=== PATIENT | male | born 1950 | race Caucasian/White ===

== ENCOUNTER 2018-07-13 10:47 | Inpatient (IN) | payer OTHER ==
[2018-07-13] MEDS ORDERED: MIDAZOLAM 2 MG/2 ML VIAL ONE (11:03)
[2018-07-13] MEDS ORDERED: LIDOCAINE 1% 300 MG/30 ML SDV ONE (11:03)
[2018-07-13] MEDS ORDERED: IOPAMIDOL (ISOVUE-370) 150 ML BTL IV ONE (11:03)
[2018-07-13] MEDS ORDERED: fentaNYL 100 MCG/2 ML INJ ONE (11:03)
[2018-07-13] MEDS ORDERED: ASPIRIN 81 MG CHEWABLE TAB ONE (11:03)
[2018-07-13] MEDS ORDERED: ONDANSETRON 4 MG/2 ML VIAL IVP ONE (11:06)
[2018-07-13] MEDS ORDERED: ASPIRIN 81 MG CHEWABLE TAB PO ONE (11:06)
[2018-07-13] MEDS ORDERED: ATROPINE SULFATE 1 MG/10 ML SYR ONE (11:07)
[2018-07-13] MEDS ORDERED: CLOPIDOGREL BISULFATE 75 MG TAB ONE (11:07)
[2018-07-13] MEDS ORDERED: BIVALIRUDIN 250 MG/5 ML VIAL IV ONE (11:07)
[2018-07-13] MEDS ORDERED: NITROGLYCERIN 1,500 MCG/15 ML VIAL MISC ONE (11:07)
[2018-07-13] MEDS ORDERED: EPINEPHrine 1 MG/10 ML SYR IVP ONE (11:07)
[2018-07-13] MEDS ORDERED: CLOPIDOGREL BISULFATE 75 MG TAB PO ONE (11:11)
--- NOTE | 2018-07-13 11:11 | EDPHY ---
H & P Stated Complaint: cp/l arm radiation Time Seen by Provider: 07/13/18 10:55 HPI/ROS: CHIEF COMPLAINT: Chest pain HISTORY OF PRESENT ILLNESS: 68-year-old male with diabetes and hypertension presents with chest pain. He was walking out of a store 20 min prior to arrival when he developed fairly sudden onset of severe anterior chest pain, 10/ 10, associated with diaphoresis. Pain persisted, so drove himself to the ED. Continues to have 8/10 chest pain. No radiation of pain and no allev/aggrev factors. No known history of coronary artery disease. REVIEW OF SYSTEMS: complete 10 point ROS reviewed and is negative except for the noted elements in the HPI Source: Patient - Personal History Current Tetanus Diphtheria and Acellular Pertussis (TDAP): Yes - Medical/Surgical History Hx Asthma: No Hx Chronic Respiratory Disease: No Hx Diabetes: Yes Hx Cardiac Disease: No Hx Renal Disease: No Hx Cirrhosis: No Hx Alcoholism: No Hx HIV/AIDS: No Hx Splenectomy or Spleen Trauma: No Other PMH: diab/htn - Social History Smoking Status: Never smoked Alcohol Use: Sober Drug Use: None Additional Social History: - Physical Exam Exam: General Appearance: Alert, pleasant Eyes: Pupils equal and round, no conjunctival pallor or injection ENT, Mouth: Mucous membranes moist Neck: Normal inspection Respiratory: Lungs are clear to auscultation anteriorly Cardiovascular: Regular rate and rhythm Gastrointestinal: Abdomen is soft and nontender Neurological: A&O, nonfocal exam Skin: Warm and dry, no rash Extremities: Nontender, pedal edema Psychiatric: Mood and affect normal Constitutional: Initial Vital Signs Temperature (C) 36.5 C 07/13/18 10:49 Heart Rate 77 07/13/18 10:49 Respiratory Rate 19 07/13/18 10:49 Blood Pressure 110/91 H 07/13/18 10:49 O2 Sat (%) 92 07/13/18 10:49 O2 Delivery Mode Room Air Allergies/Adverse Reactions: metformin Allergy (Verified 07/13/18 13:34) Diarrhea Home Medications: Medication Instructions Recorded Acetaminophen [Tylenol 325mg (*)] 325 mg PO DAILY PRN 07/13/18 Exenatide [Byetta] 10 mcg SQ BID 07/13/18 Gabapentin [Neurontin 300 MG (*)] 300 mg PO DAILY 07/13/18 Gabapentin [Neurontin 300 MG (*)] 600 mg PO HS 07/13/18 Insulin Aspart [novoLOG] 2 - 4 unit SC TIDMEAL 07/13/18 Insulin Detemir [Levemir] 41 unit SQ HS 07/13/18 Lisinopril [Zestril 40 mg (*)] 40 mg PO DAILY 07/13/18 Omeprazole 20 mg PO BIDAC 07/13/18 Aspirin EC [Aspirin EC 325 mg (*)] 325 mg PO DAILY #0 tab 07/14/18 Clopidogrel Bisulfate [Plavix (*)] 75 mg PO DAILY #30 tab 07/14/18 Nitroglycerin [Nitrostat 0.4 mg 0.4 mg SL PRN PRN #1 btl 07/14/18 (*)] Medical Decision Making - Diagnostics EKG Interpretation: EKG interpreted by me reveals ST segment elevation in inferior leads, consistent with acute inferior myocardial infarction. Interpretation: Abnormal EKG Imaging Results: Chest x-ray: Unremarkable Imaging: I viewed and interpreted images myself ED Course/Re-evaluation: Cardiac alert was called on patient arrival. EKG c/w acute inferior [place]. Aspirin 324 mg orally given. Plavix 600 mg orally. Morphine 4 mg IV for chest pain, some alleviation of cp. Stat portable chest x-ray is unremarkable; no evidence of dissection. Seen by Dr. Hendrix in the ED. Taken emergently to the cardiac catheterization lab. This patient utilized 15 min of critical care time exclusive of unbundled procedures. Differential Diagnosis: Differential diagnosis includes though it is not limited to pneumonia, pneumothorax, pulmonary embolism, aortic dissection, pericarditis, acute coronary syndrome. - Data Points Laboratory Results: Laboratory Results 07/13/18 10:52 07/13/18 10:52 Medications Given: Discontinued Medications Aspirin (Aspirin) 324 mg PO EDNOW ONE Stop: 07/13/18 11:07 Last Admin: 07/13/18 11:12 Dose: 324 mg Aspirin Buffered (Aspirin Ec) 325 mg PO DAILY [facility] Stop: 01/10/19 08:59 Last Admin: 07/14/18 08:21 Dose: 325 mg Clopidogrel Bisulfate (Plavix) 600 mg PO EDNOW ONE Stop: 07/13/18 11:12 Last Admin: 07/13/18 11:12 Dose: 600 mg Clopidogrel Bisulfate (Plavix) 75 mg PO DAILY [facility] Stop: 01/10/19 08:59 Last Admin: 07/14/18 08:21 Dose: 75 mg Gabapentin (Neurontin) 300 mg PO DAILY JENNIFER Stop: 01/10/19 08:59 Last Admin: 07/14/18 08:21 Dose: 300 mg Gabapentin (Neurontin) 600 mg PO HS [facility] Stop: 01/09/19 20:59 Last Admin: 07/13/18 20:37 Dose: 600 mg Insulin Glargine (Lantus Syringe) 41 units SC HS JENNIFER Stop: 01/09/19 20:59 Last Admin: 07/13/18 21:07 Dose: 41 units Insulin Human Lispro (Humalog Lispro) 2 - 4 unit SC TIDMEAL [facility] Stop: 01/10/19 07:59 Last Admin: 07/14/18 11:56 Dose: 2 units Lisinopril (Zestril) 40 mg PO DAILY [facility] Stop: 01/10/19 08:59 Last Admin: 07/14/18 08:21 Dose: 40 mg Miscellaneous Medication (Exenatide [Byetta]) 10 mcg SQ BID [facility] Stop: 01/09/19 20:59 Last Admin: 07/14/18 09:32 Dose: Not Given Morphine Sulfate (Morphine) 4 mg IVP EDNOW ONE Stop: 07/13/18 11:07 Last Admin: 07/13/18 11:12 Dose: 4 mg Ondansetron HCl (Zofran) 4 mg IVP EDNOW ONE Stop: 07/13/18 11:07 Last Admin: 07/13/18 12:17 Dose: Not Given Pantoprazole Sodium (Protonix) 40 mg PO BIDAC [facility] Stop: 01/10/19 07:29 Last Admin: 07/14/18 07:54 Dose: 40 mg Point of Care Test Results: Chemistry 07/13/18 11:09 POC Troponin I 0.03 ng/mL ng/mL (0.00-0.08) Departure - Departure Disposition: [facility] Acute Clinical Impression: Acute coronary syndrome Condition: Fair
[2018-07-13] MEDS ORDERED: ONDANSETRON 4 MG/2 ML VIAL ONE (11:15)
[2018-07-13 11:23] LABS: PLATELET COUNT 307 10^3/uL (150-400)
--- NOTE | 2018-07-13 11:26 | PDCONSULT ---
Backup Administrative Coordinator Note: CC: Chest pains HPI: Patient is a 68 y/o male with history of DM (on both insulin and oral agents), HTN (on ACEi), but no prior history of HLP or CAD, who presents to the ER via private transport with complaints of chest pains. Symptoms began about 20 minutes prior to arrival. No symptoms similar. Left/central chest pains are noted. Radiation down the left arm is noted. Nausea with emesis also appreciated in the ER. Pains had diminished from their peak (8/10) in the ER without therapies rendered. No PND or orthopnea has been noted. Ongoing discomfort in the ER led to rapid ECG which revealed ST elevation to the inferior leads. Remainder of the 12 point review of systems was unremarkable PMHx: (1) HTN (2) DM (3) Obesity (4) no HLP or CAD SHx: non smoker, non drinker (: Mica) FHx: Non contributory Allergies to Metformin Home medications: (1) Lisinopril (dose to be clarified) (2) Insulin (3) Byetta Vitals as per below GEN: awake and alert HEENT: NCAT with PERRLA, EOMI NECK: supple without JVD LUNGS: CTA bilaterally without wheeze or rales. Mild decrease sounds to the bases bilaterally COR: RRR without m/r/g, no S3 or S4 noted, normal S1/S2 ABD: moderate obesity, soft, NTND with NABS EXT: No c/c/e, 2+ DP/PT/RAD SKIN: no ecchymosis, rash NEURO: no focal deficits were noted Labs: All currently pending CXR: normal heart size with mild bilateral lower lung congestion ECG: ST elevation to II, III, and aVF Assessment and Plan 68 y/o male with history of DM and HLP, who presents to the ER with inferior STEMI. 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 Plavix load in the ER (600 mg). Further recommendations after diagnostic cardiac catheterization performed.
[2018-07-13 11:35] LABS: INR 0.97 (0.83-1.16); PROTIME(PATIENT) 13.1 SEC (12.0-15.0)
[2018-07-13] MEDS ORDERED: METOPROLOL TARTRATE 5 MG/5 ML INJ ONE (11:51)
[2018-07-13] MEDS ORDERED: HYDROCODONE/APAP 5/325 TAB PO PRN (12:45)
[2018-07-13] MEDS ORDERED: ATROPINE SULFATE 1 MG/10 ML SYR IVP PRN (12:45)
[2018-07-13] MEDS ORDERED: NITROGLYCERIN 0.4 MG BTL SL PRN (12:45)
[2018-07-13] MEDS ORDERED: ONDANSETRON 4 MG/2 ML VIAL IVP PRN (12:45)
[2018-07-13] MEDS ORDERED: OXYCODONE/APAP 5/325 TAB PO PRN (12:45)
--- NOTE | 2018-07-13 12:46 | CPEKG ---
Test Reason : OPEN Blood Pressure : / mmHG Vent. Rate : 071 BPM Atrial Rate : 072 BPM P-R Int : 220 ms QRS Dur : 103 ms QT Int : 389 ms P-R-T Axes : 059 030 097 degrees QTc Int : 423 ms Sinus rhythm Prolonged WI interval Inferior infarct, acute (RCA) Anteroseptal infarct, old Probable RV involvement, suggest recording right precordial leads Confirmed by Akua Haji ([id number]) on 07/13/2018 12:46:23 PM Referred By: Confirmed By:Akua Haji
--- NOTE | 2018-07-13 13:14 | ASMTCMCOM ---
CM Note CM Note Notes: Patient's Mica contacted as patient heading up to medical laboratory manager and informed her of patient's ER visit (CP), and explained plan for medical laboratory manager and recovery in the ICU. Mica is unable to get to the hospital at this time and I have assured her that I would pass her contact information to Dr. Gonsales and the cath team, as well as keep her updated myself. I provided Dr. Gonsales with Mica's phone number and he will contact her after the procedure. Patient informed that Mica was contacted. Follow up call to Mica at 1315. She has spoken to Dr. Gonsales and to patient (post procedure) and family is on their way in to visit. Date Signed: 07/13/2018 11:49 AM Electronically Signed By:Bharti Saucedo RN
--- NOTE | 2018-07-13 14:00 | PDCONSULT ---
Licensed Mass Real Estate Appraiser Note: ASSESSMENT 68-year-old male with morbid obesity and severe obstructive sleep apnea dependent on CPAP admitted for inferior ST segment elevation TN # Inferior STEMI, s/p CHANDLER to RCA # TATYANA - severe, dependent on CPAP # chest pain # Diabetic LE ulcer # obesity AND PLAN # post stemi care per cardiology # Patient counseled to have family bring CPAP up from [facility] - if unable, will order CPAP 10 cm H20 with nasal mask # restart antihypertensives lung condition allows # supportive care for diabetic lower extremity wound. Expect that initiation of statin therapy will help heal wound # counseled on weight loss both for improvement in sleep disordered breathing as well as cardiovascular outcomes # Thromboprophylaxis - loaded with antiplatelets, consider starting SQ hepari # Head of bed elevated # Ulcer prophylaxis - NA # Glucose SSI # Skin no skin breakdown, wound care as above # Delirium - delirium precautions EVENTS 07/13/18 admission, PCI with CHANDLER to RCA Chief complaint Chest pain HPI Rock is a 68-year-old obese white male with insulin-dependent type 2 diabetes obstructive sleep apnea from [place] who was admitted to the ICU after being treated for an inferior STEMI. 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 Drove himself to the emergency department. An ECG revealed ST elevation in inferior leads. He was urgently taken to the film laboratory technician and was found to have 100% occlusion of the RCA. This was a drug-eluting stent was placed and patient was transferred to the ICU. Upon interviewing he states his chest pain is resolved, denies headaches, denies lightheadedness or diaphoresis, denies shortness of breath, next Lasix welling. He states he is a never smoker is in generally good health with the exception of his diabetes. He reports his last hemoglobin A1c was approximately 8.5 I was asked by Dr. Oh Hendrix of Cardiology to consult on this patient for ICU care and sleep disordered breathing Allergies None S medical history hypertension, hyperlipidemia, obstructive sleep apnea dependent on CPAP Medications Lisinopril, insulin, Byetta Social history never smoker never drinker . Lives in [place] Review of systems a comprehensive 12 point review of systems is obtained is negative except as per HPI Exam Vitals Temperature 36.5 degrees pulse 77 blood pressure 110/91 respiratory rate 19 90% on room air General obese white male in no acute distress HEENT oropharynx clear, Mallampati 4, pupils equally round and reactive to light Neck thick neck trachea midline no appreciable lymphadenopathy Chest no PAS as could bottom, nontender, regular in rhythm no murmur rubs or gallops no JVD Respiratory ox gas station bilaterally no respiratory distress Abdomen protuberant nontender nondistended Extremities bilateral lower extremities with compression stockings and right lower extremity with oxygen tension device in place. Bandage is clean dry and intact. Neuro alert and oriented x3 current nerves 2 through 12 grossly intact Data I reviewed interpreted patient's laboratory data and radiographic images Chest x-ray with clear lung parenchyma and normal cardiac silhouette. Labs notable for normal hemoglobin, normal platelets, normal INR, normal serum creatinine, high normal serum bicarbonate Patient is critical ill due to life threatening organ dysfunction and is at high risk for arrhythmias, decompensation, and . Total critical care time, excluding procedures: 40 min
--- NOTE | 2018-07-13 14:02 | CPIP ---
DATE OF PROCEDURE: 07/13/2018 CHIEF COMPLAINT: ST-elevation myocardial infarction. PROCEDURE: 1. Nonselective right groin sheathogram. 2. Bilateral coronary angiography. 3. Left heart catheterization. 4. Left ventriculogram. 5. Percutaneous intervention of mid right coronary artery utilizing Synergy 3.5 x 16 mm drug-eluting stent. HISTORY: Briefly, this is a 68-year-old male with history of diabetes, hypertension, obesity who pr esents to [facility] with complaints of chest pain. The patient was found have acute inferior STEMI. DESCRIPTION OF PROCEDURE: The patient was taken emergently to the cardiac analyst microbiology lab. After informed c onsent, right groin was prepped and draped in sterile fashion. Using local lidocaine, a short 6-Frenc h sheath placed in the right femoral artery verified angiographically. Through this 6-Sierra Leonean sheath, a JL4 catheter was advanced to the left coronary artery. Images of left circumflex artery revealed normal left main. Left circumflex artery had tubular 40% disease proximal ly, with another area of 30% disease after the takeoff of a small marginal artery. Distally, the reymundo inal 2 artery had 30% to 40% disease, but was patent. There was a high takeoff of a diagonal 1 artery , which was tiny. The LAD gave off a large diagonal artery proximally, which had diffuse 70% to 80% d isease. Distally, the vessel appeared to be diseased, but patent. The LAD in its midportion gave off an another 2nd diagonal artery, which diffuse 70% to 80% disease. The LAD after the takeoff of a larg e septal community reinvestment act officer had 70% to 80% disease. Distally, the LAD also had initial area of 60% to 70% dis ease. After these images were obtained, the JL4 catheter was removed. A JR4 catheter was advanced to the [facility] coronary artery. Images of the right coronary artery revealed an inferior anterior takeoff of the RCA with 100% proximal occlusion. At this time, we switched the guide for multipurpose guide cathete r. Angiomax bolus and drip were started. Patient was administered Plavix in the ER. The m ultipurpose catheter was placed in the right coronary artery. A Choice PT wire was advanced distally. A 3.0 x 12 balloon was then advanced into the mid RCA and inflated to 10 atmospheres. After deflatio n, angiographic images obtained, which showed TIM-3 flow through the vessel now with what appeared t o be a ruptured plaque in the mid RCA. Of note, the RPD and RPLS had both tubular high-grade disease in both their proximal areas. At this t asif, we decided to proceed with stenting of the vessel with a 3.5 x 16 Synergy drug-eluting stent. Th is was deployed successfully at 14 atmospheres. After deployment, angiographic images showed excellen t patency of the RCA. Again, the lesions in the RPD and RPLS were both re-demonstrated, e nirmala after 200 mcg of nitroglycerin was administered. This was verified in orthogonal views. At this time, the wire was removed. The guide catheter was pulled back. A pigtail catheter was then a dvanced into the left ventricle, which showed EDP of 20 mmHg. Left ventriculogram in the CHAWLA projecti on showed an EF of 65% with no wall motion abnormalities. No pullback gradient between the LV and the aorta. Pigtail catheter was removed over the 0.035 wire. Right groin was closed 6-Sierra [place]an Angio-Seal. The patient procedure well with no complications. IMPRESSION: 1. Triple-vessel coronary artery disease with acute plaque rupture in the mid right coronary artery, treated successfully with percutaneous coronary intervention/drug eluting stent. 2. Normal ejection fraction. PLAN: The patient has significant triple-vessel disease, namely in the form of diagonal artery, mid left anterior descending, as well as right posterior descended artery and right posterolateralis pamela ster. His culprit lesion has been successfully treated. His ST segments resolved and the patient is c hest pain-free; however, I do feel a long-term solution for the patient is best served with bypass tinoco rgery versus aggressive medical therapy. We will consult CT surgery for further advice. Given the fac t this synergy stent was used, we would like to have a minimum of 3 months of Plavix and aspirin util ization prior to any discontinuation of this medication. We will institute a strong regimen of Plavix , aspirin, statin, beta kellen, and HEBER inhibitor for blood pressure control. /[id number]/MODL
--- NOTE | 2018-07-13 15:03 | ECHO ---
[email or web address] [address] Main: [phone] Fax: [email or web address] Echocardiogram Name: DAE MOSQUERA MR#: [id number] Study Date: 07/13/2018 Study Time: 02:07 PM Date of : 1950 Age: 68 year(s) Height: 175.3 cm (69 in.) Weight: 117.94 kg (260 lb.) BSA: 2.31 m2 Gender: Male Examination: Echo Indication: S/P STEMI Image Quality: Technically Difficult Contrast: Requested by: Oh Hendrix BP: 133 mmHg/79 mmHg Heart Rate: Rhythm: Indication: S/P STEMI Procedure Staff Bark Fitter: Luba Rg RDCS Reading Physician: Jimmy Katz MD Requesting Provider: Conclusions: Moderate concentric LV hypertrophy. Normal global systolic LV function. EF is 65 %. The mitral valve is normal in appearance and function. Aortic valve is not well visualized. There is no tricuspid valve regurgitation. Pulmonary artery pressure is not obtained due to inadequate TR jet. There is pericardial fat. Measurements: Chambers Valvular Assessment AV/MV Valvular Assessment TV/PV Normal Normal Normal Name Value Range Name Value Range Name Value Range Ao Kindra (MM): 3.0 cm (2.2 cm-3.7 AV Vmax: 1.46 m/s (1 m/s-1.7 cm) m/s) IVSd (2D): 1.4 cm (0.6 cm-1.1 AV maxP mmHg ( - ) cm) LVOT Vmax: 0.78 m/s (0.7 m/s-1.1 LVDd (2D): 4.6 cm (4.2 cm-5.9 m/s) cm) DILCIA (Vmax): 1.7 cm2 ( - ) LVDs (2D): 3.0 cm (2.1 cm-4 MV E Vmax: 0.97 m/s ( - ) cm) MV A Vmax: 1.08 m/s ( - ) LVPWd (2D): 1.2 cm (0.6 cm-1 MV E/A: 0.90 ( - ) cm) LVOTd 2.0 cm 2.0 cm mm LVEF (2D): 65 (>=54 %) RVDd(2D): 3.0 cm (1.9 cm-3.8 cmmm) Continued Measurements: Chambers Valvular Assessment AV/MV Patient: DAE MOSQUERA Study Date: 07/13/2018 Page 1 of 2 02:07 PM Name Value Name Value LADs: 2.9 cm MV DecTime: 151 m/s TAPSE: 2.9 cm MV E' Septal: 0.06 m/s MV E/E' Septal: 17.50 MV E/E' Lateral: 13.80 Additional Vessels Name Value Ao Ascendin.7 cm Findings: Left Ventricle: Normal size left ventricle. Moderate concentric LV hypertrophy. Normal global systolic LV function. EF is 65 %. Right Ventricle: Normal size right ventricle. Normal RV function. Left Atrium: The left atrium is normal in size. Right Atrium: The right atrium is normal in size. Mitral Valve: The mitral valve is normal in appearance and function. There is no mitral valve regurgitation. No mitral stenosis is present. Aortic Valve: Aortic valve is not well visualized. There is no aortic valve regurgitation. No aortic valve stenosis is present. Tricuspid Valve: Tricuspid valve not visualized. There is no tricuspid valve regurgitation. Pulmonary artery pressure is not obtained due to inadequate TR jet. Pulmonic Valve: Pulmonary valve not well visualized. Aorta: Normal size aortic root measuring 3.0 cm. Normal size ascending aorta measuring 2.7 cm. IVC: Normal size and course of the IVC. Pericardium: No pericardial effusion. There is pericardial fat. Exam Comments: (No Signature Object) Patient: DAE MOSQUERA Study Date: 07/13/2018 Page 2 of 2 02:07 PM [id number]
[2018-07-13] MEDS ORDERED: ACETAMINOPHEN 325 MG TAB PO PRN (20:16)
[2018-07-13] MEDS ORDERED: GABAPENTIN 300 MG CAP PO SCH (21:00)
[2018-07-13] MEDS ORDERED: INSULIN GLARGINE 100 UNITS/ML UNIT SC SCH (21:00)
[2018-07-13] MEDS: Exenatide [Byetta] 10 MCG SQ SCH (21:01)
[2018-07-14] MEDS ORDERED: PANTOPRAZOLE SODIUM 40 MG TAB PO SCH (07:30)
[2018-07-14] MEDS: INSULIN LISPRO 100 UNIT/ML SC SCH ×2 (08:19→11:56)
[2018-07-14] MEDS ORDERED: ASPIRIN EC 325 MG TAB PO SCH (09:00)
[2018-07-14] MEDS ORDERED: CLOPIDOGREL BISULFATE 75 MG TAB PO SCH (09:00)
[2018-07-14] MEDS ORDERED: LISINOPRIL 40 MG TAB PO SCH (09:00)
[2018-07-14] MEDS ORDERED: GABAPENTIN 300 MG CAP PO SCH (09:00)
[2018-07-14] MEDS: Exenatide [Byetta] 10 MCG SQ SCH (09:32)
--- NOTE | 2018-07-14 10:08 | PDMN ---
Medical Necessity Medical necessity: Pt meets IP criteria per MD and MCG M-230; est los > 2 mn for ongoing management of tx of STEMI requiring PCI, ICU care; pt is critically ill due to life threatening organ dysfunction and is at high risk for arrhythmias, decompensation, and .
--- NOTE | 2018-07-14 10:11 | PDCARPN ---
Cardiology Progress Note Chief Complaint: No cardiovascular complaints today. Assessment/Plan: Assessment: 07-14-18 No cardiovascular complaints today. Successful PCI to the RCA culprit lesion yesterday. Residual, (at present) non critical CAD continues to be noted to remaining vessels. CT surgery consult was rendered, but patient, from [facility], wanting to be closer to home for further cardiovascular work up/therapy. Ongoing wound treatment to the right lower extremity (there continues to be a non healed lesion, but according to the patient, it is doing much better). No chest pains or pressure today, no PND or orthopnea 07-13-18 Patient is a 68 y/o male with history of DM (on both insulin and oral agents), HTN (on ACEi), but no prior history of HLP or CAD, who presents to the ER via private transport with complaints of chest pains. Symptoms began about 20 minutes prior to arrival. No symptoms similar. Left/central chest pains are noted. Radiation down the left arm is noted. Nausea with emesis also appreciated in the ER. Pains had diminished from their peak (8/10) in the ER without therapies rendered. No PND or orthopnea has been noted. Ongoing discomfort in the ER led to rapid ECG which revealed ST elevation to the inferior leads. Plan: (1) ASA and Plavix for minimum of three months (given the CHANDLER placed). Would prefer one year of therapy with Plavix and lifetime of ASA therapy - consideration for outpatient MPI testing to better delineate the severity of the lesions remaining. Several were visually estimated to be >70% (2) Would continue therapy on lisinopril for HTN given CAD with DM history (3) Patient should be started on statin therapy (Crestor 10 mg) given this new diagnosis of CAD with residual stenosis (4) Aggressive DM therapy/control continues to be needed (5) Would arrange for cardiac rehab assessment (6) Patient wanting to have follow up care in [place]. [facility] remains a back up program for the patient Subjective: No cardiovascular complaints today Reviewed/Discussed With: family, multidisciplinary team Objective: Vital Signs (8 Hrs) Temp Pulse Resp BP Pulse Ox 07/14/18 08:00 36.6 C 80 15 132/67 H 90 L 07/14/18 07:00 18 114/50 L 92 07/14/18 06:00 84 16 115/81 H 91 L 07/14/18 05:00 81 15 109/51 L 91 L 07/14/18 04:00 83 12 126/50 H 91 L 07/14/18 03:00 85 14 134/59 H 92 Intake/Output (24 Hrs) 07/13/18 07/14/18 07/15/18 05:59 05:59 05:59 Intake Total 500 Output Total 450 Balance 50 Intake: Oral (ml) 500 Output: Urine (ml) 450 Urinal 450 Other: Weight 117.9 kg Intake Quantity Yes Sufficient Number of Voids Toilet 1 Result Diagrams: 07/13/18 10:52 07/13/18 10:52 Telemetry: sinus rhythm Echocardiogram: normal systolic function was noted (post PCI to the RCA) - Physical Exam Constitutional: WDWN, healthy appearing, no apparent distress, obese Eyes: PERRL, EOMI Ears, Nose, Mouth, Throat: moist mucous membranes Cardiovascular: regular rate and rhythm, no murmurs, no rubs, pulses symmetric bilat, No jugular vein distention Peripheral Pulses: 2+: dorsalis-pedis (R), dorsalis-pedis (L) Respiratory: clear to auscultate bilat, no crackles, no wheezes Gastrointestinal: normoactive bowel sounds Skin: no edema, erythema, induration Musculoskeletal: no muscular tenderness Neurologic: AAOx3, CN II-XII grossly intact Psychiatric: cooperative, interactive, following commands ICD10 Worksheet Patient Problems: Problems Problem Status Onset Acute coronary syndrome Acute
[2018-07-14 10:28] VITALS: BP 130/63
--- NOTE | 2018-07-14 12:53 | PDINTPN ---
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 Expect statin therapy to help heal wound # counseled on weight loss both for improvement in sleep disordered breathing as well as cardiovascular outcomes # Thromboprophylaxis - loaded with antiplatelets, SCDs, ambulation # Head of bed elevated # Ulcer prophylaxis - NA # Glucose SSI # Skin no skin breakdown, wound care as above # Delirium - delirium precautions # Dispo per cardiology Subjective: Successful PCI to RCA I yesterday. Patient slept well without pain. Used home CPAP without significant nocturnal desaturations. Patient denies headaches, chest pains, shortness of breath, new leg swelling, abdominal pain or diarrhea Objective: Vital Signs Temp Pulse Resp BP Pulse Ox 36.6 C 85 16 130/63 H 92 07/14/18 08:00 07/14/18 10:00 07/14/18 10:00 07/14/18 10:00 07/14/18 10:00 07/13/18 07/14/18 07/15/18 05:59 05:59 05:59 Intake Total 500 Output Total 450 Balance 50 PT 13.1 SEC (12.0-15.0) 07/13/18 10:52 INR 0.97 (0.83-1.16) 07/13/18 10:52 Physical Exam - Physical Exam General Appearance: WD/WN, alert, no apparent distress EENT: PERRL/EOMI, normal ENT inspection, No scleral icterus (L), No pale conjunctiva (R) Neck: non-tender, full range of motion Respiratory: chest non-tender, lungs clear, normal breath sounds Cardiac/Chest: regular rate, rhythm, No edema, No gallop Abdomen: normal bowel sounds, non-tender Male Genitalia: deferred Skin: normal color, warm/dry Extremities: normal range of motion, non-tender Neuro/Psych: no motor/sensory deficits, alert, normal mood/affect, oriented x 3 ICD10 Worksheet Patient Problems: Problems Problem Status Onset Acute coronary syndrome Acute chronic disease mgmt/transitional care Acute
--- NOTE | 2018-07-15 05:22 | GDS ---
ADMIT DIAGNOSES: 1. Acute coronary artery syndrome. 2. Diabetes mellitus. 3. Hypertension. DISCHARGE DIAGNOSES: 1. ST elevation myocardial infarction. 2. Stent placement to the right coronary artery. 3. Triple-vessel coronary artery disease. 4. Hypertension. COURSE OF HOSPITALIZATION: This gentleman arrived at the emergency room by personal car with complaints of chest pain, rating it an 8/10. The discomfort had started 20 minutes prior to arrival to the emergency room. It did peak at 10/10. He was experiencing chest pain and diaphoresis in the emergency room. It was determined that he had an ST-elevation myocardial infarction in progress and was transferred emergently to the cardiac soap slabber by Dr. Jimmy Katz performed angiogram finding triple-vessel coronary artery disease. He did have a tight lesion in the RCA and a Synergy stent was placed with no complications. He then was taken to the step-down ICU unit where he was monitored overnight. He has done well through the night. Dr. Katz and Dr. Hendrix visited with him regarding recommendation for possible bypass surgery. He is from [place] and prefers to return to [place] for further cardiac treatment. His telemetry has remained stable. He has had no chest pain or shortness of breath today. His blood pressure full and heart rate have been stable. Blood pressure 130/63 today with heart rate 85 and regular. No arrhythmias have been noted. At this time, he will be discharged with recommendation for followup within 1 week for further cardiac testing and treatment. PHYSICAL EXAMINATION: VITAL SIGNS: On day of discharge, blood pressure 130/63 , heart rate 85 and regular. No arrhythmias noted. Oxygen saturation 92%, temperature 36.6. EKG shows regular sinus rhythm with no ischemic changes. Heart rate regular. No murmurs, rubs, gallops. LUNG: Sounds are clear to auscultation. No wheezes, rales, or rhonchi. GROIN: Right groin site is intact with no bleeding, induration, or pain. EXTREMITIES: Peripheral pulses are 2+ bilaterally with no edema. MEDICATIONS: He will be discharged on Plavix 75 mg daily, lisinopril 40 mg daily, Levemir insulin 41 units subcu at bedtime, Neurontin 300 mg daily, Byetta 10 mcg twice daily, omeprazole 20 mg twice daily before meals, Neurontin 600 mg at bedtime, Tylenol 325 mg daily as needed, Nitrostat 0.4 mg sublingual as needed, aspirin enteric-coated 325 mg daily. ALLERGIES: Metformin. INTERVENTIONAL REPORT: 07/13/2018. CHIEF COMPLAINT: ST-elevation myocardial infarction. PROCEDURE: 1. Nonselective right groin sheathogram. 2. Bilateral coronary angiogram. 3. Left heart catheterization. 4. Left ventriculogram. 5. Percutaneous intervention of mid right coronary artery utilizing Synergy 3.5 x 16 mm drug-eluting stent. IMPRESSION: 1. Triple-vessel coronary artery disease with acute plaque rupture in the mid right coronary artery, treated successfully with percutaneous coronary intervention drug-eluting stent. 2. Normal ejection fraction. PLAN: Patient has significant triple-vessel disease, namely in the form of diagonal artery, mid left anterior descending, as well as right posterior descending artery and right posterolateral sinister. The culprit lesion has been successfully treated his ST segments resolved, and the patient is chest pain free. There was recommended a long-term solution for the patient is best served with bypass surgery versus aggressive medical therapy. CT surgery consult recommendation for further advice. Given the fact this Synergy stent was used, we would like to have a minimum of 3 months of Plavix and aspirin utilization prior to any discontinuation of his medication. We will institute a strong regimen of Plavix, aspirin, statin, beta kellen, and HEBER inhibitor for blood pressure control. By Dr. Jimmy Katz MD recommendations. PLAN: 1. Aspirin and Plavix for minimum of 3 months. Would prefer 1 year of therapy with Plavix and lifetime aspirin therapy. Consideration for outpatient MPI testing to better delineate the severity of the lesions remaining. Several were visually estimated to be greater than 70%. 2. We will continue therapy on lisinopril for hypertension given coronary artery disease and diabetes mellitus history. 3. Patient should be started on statin therapy given this new diagnosis of coronary artery disease with residual stenosis. 4. Aggressive diabetes therapy. Control continues to be needed. 5. Would arrange for cardiac rehab assessment. 6. Patient wanting to have followup care in [place]. [facility] remains a backup program for this patient. At this time of discharge, he is feeling well. He has no chest pain, shortness of breath, or other cardiac symptoms. There have not been any complications post PCI. His recovery has been faster than anticipated. Although in long-term he will likely benefit from bypass surgery given his triple vessel cardiac disease. His preference is to establish cardiac care in [place] nearer to where he lives. 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 At this time, he currently is stable for discharge. /[id number]/MODL MTDD
--- NOTE | 2018-07-16 14:54 | CPEKG ---
Test Reason : OPEN Blood Pressure : / mmHG Vent. Rate : 075 BPM Atrial Rate : 075 BPM P-R Int : 184 ms QRS Dur : 106 ms QT Int : 390 ms P-R-T Axes : 052 -38 -14 degrees QTc Int : 436 ms Sinus rhythm Left axis deviation Anterior infarct, old Borderline T abnormalities, inferior leads Confirmed by Kumar Yan ([id number]) on 07/16/2018 2:53:36 PM Referred By: Confirmed By:Kumar Yan
== END 2018-07-14 13:36 | disposition home or self-care (01) | DRG 247 ==
LOC: F2N 12:15
PROVIDERS: ADMIT Internal Medicine Cardiovascular Disease; ATTEND Internal Medicine Cardiovascular Disease
DX: I21.19 ST elevation (STEMI) myocardial infarction involving other coronary artery of inferior wall (principal); I25.10 Atherosclerotic heart disease of native coronary artery without angina pectoris; E11.621 Type 2 diabetes mellitus with foot ulcer; G47.33 Obstructive sleep apnea (adult) (pediatric); I10 Essential (primary) hypertension; E66.01 Morbid (severe) obesity due to excess calories; Z68.38 Body mass index [BMI] 38.0-38.9, adult; Z99.89 Dependence on other enabling machines and devices
CPT/HCPCS: 84484-PO; 96374; C1725; C1760; C1769; C1874; C1887; C9606; J0461; J0583; J1644; J1815; J2250; J2270; J2405; J3010; Q9967